=== PATIENT | female | born 1955 | race Caucasian/White ===

== ENCOUNTER 2018-01-15 07:34 | Outpatient (CLI) | payer OTHER ==
--- NOTE | 2018-01-15 11:31 | MRI ---
MRI THORACIC SPINE NONCONTRAST: Date: 01/15/18 HISTORY: 63-year-old female with M54.6 acute upper back pain. FINDINGS: There is no high grade central spinal canal stenosis at any level. Conus medullaris terminates at L1- 2. The thoracic spinal cord is normal in size and signal. No high grade neural foraminal stenosis is identified at any level. There are tiny focal disc-osteophyte complexes minimally indenting the ventr al aspect of the thecal sac at a few levels. There are small ones at T9-10 and T10-11, but these do n ot significant affect the caliber of the spinal canal. Mild ligamentum flavum thickening slightly ind ents the posterior aspect of the thecal sac at lower levels, notably T10-11 and T11-12. No nikhil nerv e root impingement. Vertebral body heights are maintained. Bone marrow signal is normal. No major pat hology of perivertebral spaces. Multilevel mild disc space narrowing. No severe disc space narrowing identified at any level. No large Schmorl's nodes or major end plate irregularity. No major marrow si gnal abnormality. IMPRESSION: 1. Multilevel mild degenerative disc changes in the thoracic spine. 2. Otherwise negative. POS: [facility]
--- NOTE | 2018-01-15 11:32 | MRI ---
CERVICAL SPINE MRI WITHOUT CONTRAST: DATE: 01/15/2018. COMPARISON: None. HISTORY: Degenerative disk disease, prior surgery. TECHNIQUE: Multiplanar, multisequence MRI imaging of the cervical spine provided without contrast. FINDINGS: The sagittal STIR imaging demonstrates no focal area of osseous marrow edema. Cervicovertebral body height and alignment appears within normal limits. NO prevertebral soft tissue swelling. There is prominent degenerative change at the atlantoaxial interspace with degenerative panus posteri or to the dens. C2-3: There is disk space narrowing and disk desiccation with a central annular tear and a small ass ociated disk protrusion causing partial effacement of the ventral thecal sac. No significant central canal stenosis. Mild fact hypertrophy bilaterally with no significant neural foraminal stenosis. C3-4: There is disk desiccation and minimal disk bulge with no significant central canal stenosis. Mild facet hypertrophy bilaterally with no significant neural foraminal stenosis. C4-5: There is disk space narrowing and disk desiccation with disk bulge. There is a central/left p aracentral/left foraminal disk protrusion. There is an annular tear in the central and left paracent ral regions. Disk material abuts the ventral aspect of the cervical cord to the left of midline with a mild degree of left-sided central canal stenosis. There is mild neural foraminal stenosis on the left. C5-6: There is disk space narrowing, disk desiccation, and mild disk bulge with mild central canal s tenosis. There is no significant neural foraminal stenosis. C6-7: Disk space narrowing, disk desiccation, and disk bulge. Left paracentral disk protrusion with associated annular tear. Disk material abuts the ventral aspect of the cervical cord with a mild de gree of central canal stenosis on the left. Facet and uncovertebral osteophyte formation on the left with mild left neural foraminal stenosis. N o significant right neural foraminal stenosis. C7-T1: Disk desiccation with bilateral facet hypertrophy. No significant central canal or neural fo raminal stenosis. No focal area of abnormal signal intensity is identified within the cervical cord. IMPRESSION: Scattered areas of degenerative disk disease within the cervical spine as described above. POS: [facility]
--- NOTE | 2018-01-15 11:42 | MRI ---
LUMBAR SPINE MRI NONCONTRAST: Date: 01/15/18 INDICATION: Acute lumbar radiculopathy. Examination was ordered with and without contrast, although the patient has a diminished renal functi on, and therefore this was not administered for the patient's safety. FINDINGS: There is prominent disc degenerative at L4-5 with associated Modic Type II degenerative signal altera tion, Schmorl's node formation, and prominent marginal osteophytosis with disc space narrowing. There is multilevel bilateral mild degenerative facet hypertrophy. The conus medullaris is normal in morph ology and terminates at the T12-L1 level. No acute marrow edema of significance. There is a mild degr ee of Modic Type I degenerative signal alteration of the L4 and L5 vertebral bodies. L5-S1: There is no significant compromise of the central canal or neural foramina. L4-5: There is mild central canal stenosis and crowding of the traversing right L5 nerve root due to disc osteophyte formation. Mild right foraminal narrowing present. No significant left foraminal mihai nosis. L3-4: Disc osteophyte results in mild central canal stenosis. No high grade foraminal stenosis. L2-3: Right paracentral disc protrusion is superimposed upon broad based disc bulge with mild narrow ing of the central canal. Foramina are patent. L1-2: Minimal effacement of the right ventral thecal sac due to mild disc osteophyte complex. Neural foramina are patent. The imaged retroperitoneum reveals bilateral perinephric edema, and a small T2 hyperintensity of the superior pole left kidney, incompletely visualized. There is prominence of the bilateral renal malachi, indeterminate on the basis of this exam. IMPRESSION: 1. Multilevel degenerative change of the lumbar spine, as outlined above. 2. Perinephric edema and prominence of each renal hilum, incompletely evaluated. Consider renal ultr asound as follow-up. 3. Small exophytic T2 hyperintensity of the superior pole of the left kidney may represent a superim posed cyst, although is incompletely visualized. POS: [facility]
== END 2018-01-15 07:35 | disposition home or self-care (01) ==
LOC: TBSIIMAG 07:34
PROVIDERS: ATTEND Neurological Surgery
DX: M47.12 Other spondylosis with myelopathy, cervical region (principal); M54.6 Pain in thoracic spine; M47.26 Other spondylosis with radiculopathy, lumbar region; R93.422 Abnormal radiologic findings on diagnostic imaging of left kidney; R60.9 Edema, unspecified; M50.00 Cervical disc disorder with myelopathy, unspecified cervical region; M51.84 Other intervertebral disc disorders, thoracic region
CPT/HCPCS: 72141; 72146; 72148; 82565